=== PATIENT | female | born 1950 | race American Indian/Alaskan Native ===

== ENCOUNTER 2020-12-30 11:40 | Emergency (ER) | payer MEDICAID, MEDICARE ==
[2020-12-30] MEDS ORDERED: ONDANSETRON 4 MG ODT TAB PO ONE (12:03)
[2020-12-30] MEDS ORDERED: oxyCODONE /ACETAMINOPHEN 5-325MG TAB PO ONE (12:03)
--- NOTE | 2020-12-30 12:25 | Emergency Department Report ---
ED Back Pain/Injury HPI - General Chief Complaint: Back Pain/Injury Stated Complaint: Low back pain Time Seen by Provider: 12/30/20 11:53 Source: patient Limitations: No Limitations - History of Present Illness Initial Comments: Patient is a 70-year-old female presents emergency room complaints of right lower back pain that radiates to her right buttock down her right leg that began a week ago. She states that she is also noticed that her urine has been red in coloration. She states that it is also been causing her to have nausea and vomiting secondary to the pain. She denies any fall or injury. She denies any abdominal pain, diarrhea, numbness, weakness, bowel or bladder incontinence, fever. Past medical history of hypertension, arthritis, asthma, bulging disc. She states that she had an MRI 3 years ago which she reports showed that she had 3 bulging disc. - Related Data Home Medications Medication Instructions Recorded Confirmed Last Taken Telmisartan 12/30/20 Unknown cloNIDine [Catapres] 0.2 mg PO QAM 12/30/20 12/30/20 12/30/20 0.2 mg verapamiL [Calan] 120 mg PO QAM 12/30/20 12/30/20 12/30/20 120 mg Previous Rx's Medication Instructions Recorded Last Taken Type HYDROcodone/APAP 5-325 [Bruno 1 each PO Q6HR PRN #12 tablet 12/30/20 Unknown Rx 5/325] Ondansetron [Zofran Odt] 4 mg PO Q8HR PRN #8 tab.rapdis 12/30/20 Unknown Rx Allergies Allergy/AdvReac Type Severity Reaction Status Date / Time metronidazole [From Flagyl] AdvReac Intermediate Vomiting Verified 12/30/20 11:52 tramadol AdvReac Intermediate Vomiting Verified 12/30/20 11:52 ED Review of Systems ROS: Stated complaint: Low back pain Other details as noted in HPI Comment: All other systems reviewed and negative ED Past Medical Hx - Medications Home Medications: Home Medications Medication Instructions Recorded Confirmed Last Taken Type HYDROcodone/APAP 5-325 [Bruno 1 each PO Q6HR PRN #12 tablet 12/30/20 Unknown Rx 5/325] Ondansetron [Zofran Odt] 4 mg PO Q8HR PRN #8 tab.rapdis 12/30/20 Unknown Rx Telmisartan 12/30/20 Unknown History cloNIDine [Catapres] 0.2 mg PO QAM 12/30/20 12/30/20 12/30/20 History 0.2 mg verapamiL [Calan] 120 mg PO QAM 12/30/20 12/30/20 12/30/20 History 120 mg ED Physical Exam - General Limitations: No Limitations General appearance: alert, in no apparent distress - Head Head exam: Present: atraumatic, normocephalic - Eye Eye exam: Present: normal appearance - ENT ENT exam: Present: mucous membranes moist - Neck Neck exam: Present: normal inspection, full ROM. Absent: tenderness, meningismus - Respiratory Respiratory exam: Present: normal lung sounds bilaterally. Absent: respiratory distress, wheezes, rales, rhonchi, stridor, chest wall tenderness, accessory muscle use, decreased breath sounds, prolonged expiratory - Cardiovascular Cardiovascular Exam: Present: regular rate, normal rhythm, normal heart sounds. Absent: systolic murmur, diastolic murmur, rubs, gallop - GI/Abdominal GI/Abdominal exam: Present: soft, normal bowel sounds. Absent: distended, tenderness, guarding, rebound, rigid - Back Exam Back exam: Present: normal inspection, full ROM, paraspinal tenderness (ttp to the right paraspinal lumbar region, no midline l-spine ttp, no step offs, no deformities). Absent: vertebral tenderness - Neurological Exam Neurological exam: Present: alert, oriented X3, CN II-XII intact. Absent: motor sensory deficit - Psychiatric Psychiatric exam: Present: normal affect, normal mood - Skin Skin exam: Present: warm, dry, intact ED Course Vital Signs 12/30/20 12/30/20 12/30/20 11:52 12:11 12:47 Temperature 97.7 F 98.0 F Pulse Rate 78 70 Respiratory 18 16 16 Rate Blood Pressure 211/67 182/74 [Right] O2 Sat by Pulse 98 96 Oximetry 12/30/20 13:22 Temperature 97.7 F Pulse Rate 71 Respiratory 13 Rate Blood Pressure 162/72 [Right] O2 Sat by Pulse 95 Oximetry ED Medical Decision Making - Lab Data Result diagrams: 12/30/20 12:11 12/30/20 12:11 Lab Results 12/30/20 12/30/20 12/30/20 Range/Units 12:11 12:11 Unknown WBC 4.2 L (4.5-11.0) K/mm3 RBC 4.81 (3.65-5.03) M/mm3 Hgb 12.3 (10.1-14.3) gm/dl Hct 38.6 (30.3-42.9) % MCV 80 (79-97) fl MCH 26 L (28-32) pg MCHC 32 (30-34) % RDW 15.0 (13.2-15.2) % Plt Count 277 (140-440) K/mm3 [place] % (Auto) Debate Director Add Manual Diff Complete Total Counted 100 Seg Neuts % (Manual) 63.0 (40.0-70.0) % Band Neutrophils % 1.0 % Lymphocytes % (Manual) 17.0 (13.4-35.0) % Monocytes % (Manual) 18.0 H (0.0-7.3) % Myelocytes % 1.0 % Nucleated RBC % Not Reportable Seg Neutrophils # Man 2.6 (1.8-7.7) K/mm3 Band Neutrophils # 0.0 K/mm3 Lymphocytes # (Manual) 0.7 L (1.2-5.4) K/mm3 Abs React Lymphs (Man) 0.0 K/mm3 Monocytes # (Manual) 0.8 (0.0-0.8) K/mm3 Eosinophils # (Manual) 0.0 (0.0-0.4) K/mm3 Basophils # (Manual) 0.0 (0.0-0.1) K/mm3 Metamyelocytes # 0.0 K/mm3 Myelocytes # 0.0 K/mm3 Promyelocytes # 0.0 K/mm3 Blast Cells # 0.0 K/mm3 WBC Morphology Not Reportable Hypersegmented Neuts Not Reportable Hyposegmented Neuts Not Reportable Hypogranular Neuts Not Reportable Smudge Cells Not Reportable Toxic Granulation Not Reportable Toxic Vacuolation Not Reportable Dohle Bodies Not Reportable Pelger-Huet Anomaly Not Reportable Angie Rods Not Reportable Platelet Estimate Consistent w auto Clumped Platelets Not Reportable Plt Clumps, EDTA Not Reportable Large Platelets Not Reportable Giant Platelets Not Reportable Platelet Satelliting Not Reportable Plt Morphology Comment Not Reportable RBC Morphology Not Reportable Dimorphic RBCs Not Reportable Polychromasia Not Reportable Hypochromasia 1+ Poikilocytosis Not Reportable Anisocytosis Not Reportable Microcytosis Not Reportable Macrocytosis Not Reportable Spherocytes Not Reportable Pappenheimer Bodies Not Reportable Sickle Cells Not Reportable Target Cells Not Reportable Tear Drop Cells Not Reportable Ovalocytes Not Reportable Helmet Cells Not Reportable Jones-Millard Bodies Not Reportable [place] Rings Not Reportable [place] Cells Not Reportable Bite Cells Not Reportable Crenated Cell Not Reportable Elliptocytes Not Reportable Acanthocytes (Spur) Not Reportable Rouleaux Not Reportable Hemoglobin C Crystals Not Reportable Schistocytes Not Reportable Malaria parasites Not Reportable Moe Bodies Not Reportable Hem Pathologist Commnt No Sodium 130 L (137-145) mmol/L Potassium 3.7 (3.6-5.0) mmol/L Chloride 92.5 L (98-107) mmol/L Carbon Dioxide 23 (22-30) mmol/L Anion Gap 18 mmol/L BUN 25 H (7-17) mg/dL Creatinine 0.9 (0.6-1.2) mg/dL Estimated GFR > 60 ml/min BUN/Creatinine Ratio 28 % Glucose 154 H (65-100) mg/dL Calcium 8.7 (8.4-10.2) mg/dL Total Bilirubin 0.30 (0.1-1.2) mg/dL AST 10 (5-40) units/L ALT < 5 L (7-56) units/L Alkaline Phosphatase 92 (35-129) units/L Total Protein 8.4 H (6.3-8.2) g/dL Albumin 4.0 (3.9-5) g/dL Albumin/Globulin Ratio 0.9 % Lipase 8 L (13-60) units/L Urine Color Yellow (Yellow) Urine Turbidity Clear (Clear) Urine pH 5.0 (5.0-7.0) Ur Specific [place]ater 1.020 (1.003-1.030) Urine Protein 100 mg/dl (Negative) mg/dL Urine Glucose (UA) Neg (Negative) mg/dL Urine Ketones Neg (Negative) mg/dL Urine Blood Neg (Negative) Urine Nitrite Neg (Negative) Urine Bilirubin Neg (Negative) Urine Urobilinogen 4.0 (<2.0) mg/dL Ur Leukocyte Esterase Neg (Negative) Urine WBC (Auto) 1.0 (0.0-6.0) /HPF Urine RBC (Auto) 3.0 (0.0-6.0) /HPF U Epithel Cells (Auto) 2.0 (0-13.0) /HPF Urine Mucus Few /HPF Vital Signs 12/30/20 12/30/20 12/30/20 11:52 12:11 12:47 Temperature 97.7 F 98.0 F Pulse Rate 78 70 Respiratory 18 16 16 Rate Blood Pressure 211/67 182/74 [Right] O2 Sat by Pulse 98 96 Oximetry 12/30/20 13:22 Temperature 97.7 F Pulse Rate 71 Respiratory 13 Rate Blood Pressure 162/72 [Right] O2 Sat by Pulse 95 Oximetry - Radiology Data Radiology results: report reviewed Ordering Physician: LUDIVINA MORROW Date of Service: 12/30/20 Procedure(s): CT abdomen pelvis wo con Accession Number(s): [id number] cc: LUDIVINA MORROW CT abdomen pelvis wo con INDICATION: right lower back, hematuria, hx of bulging disc. TECHNIQUE: All CT scans at this location are performed using CT dose reduction for ALARA by means of automated exposure control. COMPARISON: None available. FINDINGS: There is mild interstitial scarring in both lung bases without acute abnorm ality. There are multiple stones in the gallbladder without evidence of acute cholecystitis. There is a cyst in the anterior left hepatic lobe without acute lobar abnormality. The pancreas, adrenal glands, spleen, and kidneys demonstrate no acute findings. No urinary stones are seen. There are no acute bowel abnormalities. The appendix is normal. Small hiatal hernia is seen. Visualized osseous structures demonstrate no aggressive appearing bone lesions or acute findings. IMPRESSION: 1. No acute findings. 2. Cholelithiasis without evidence of acute cholecystitis. 3. No urinary stones identified. Signer Name: Mohinder Dale MD Signed: 12/30/2020 1:20 PM Workstation Name: [id number] Transcribed By: CHRISTAL Dictated By: Mohinder Dale MD Electronically Authenticated By: Mohinder Dale MD Signed Date/Time: 12/30/20 1320 DD/ 1318 TD/TT: - Medical Decision Making Patient is a 70-year-old female presents emergency room complaints of right lower back pain that radiates to her right buttock down her right leg that began a week ago. She states that she is also noticed that her urine has been red in coloration. She states that it is also been causing her to have nausea and vomiting secondary to the pain. She denies any fall or injury. She denies any abdominal pain, diarrhea, numbness, weakness, bowel or bladder incontinence, fever. Past medical history of hypertension, arthritis, asthma, bulging disc. She states that she had an MRI 3 years ago which she reports showed that she had 3 bulging disc. Initial vitals with elevated blood pressure which improved upon repeat without intervention, patient has chronic hypertension. On exam:ttp to the right paraspinal lumbar region, no midline l-spine ttp, no step offs, no deformities, no focal neuro deficits, patient is able to ambulate. ct abd pelvis without contrast: 1. No acute findings. 2. Cholelithiasis without evidence of acute cholecystitis. 3. No urinary stones identified. Patient given medications while in the emergency department with improvement of symptoms. Discussed the importance of primary care and neurosurgery follow-up. Symptoms likely related to lumbar radiculopathy due to her bulging disc/arthr itis versus sciatica. Discussed return precautions. Advised patient Please take medication as prescribed. Follow-up with your primary care doctor. Follow-up with a instructional systems specialist. Return to emergency room for any new or worsening symptoms. Critical care attestation.: If time is entered above; I have spent that time in minutes in the direct care of this critically ill patient, excluding procedure time. ED Disposition Clinical Impression: Back pain Qualifiers: Back pain location: low back pain Chronicity: acute Back pain laterality: right Sciatica presence: with sciatica Sciatica laterality: sciatica of right side Qualified Code(s): M54.41 - Lumbago with sciatica, right side Nausea & vomiting Qualifiers: Vomiting type: unspecified Vomiting Intractability: non-intractable Qualified Code(s): R11.2 - Nausea with vomiting, unspecified Disposition: 01 HOME / SELF CARE / HOMELESS Is pt being admited?: No Does the pt Need Aspirin: No Condition: Stable Instructions: Radicular Pain, Sciatica Additional Instructions: Please take medication as prescribed. Follow-up with your primary care doctor. Follow-up with a instructional systems specialist. Return to emergency room for any new or worsening symptoms. Prescriptions: HYDROcodone/APAP 5-325 [Bruno 5/325] 1 each PO Q6HR PRN #12 tablet PRN Reason: Pain , Severe (7-10) Ondansetron [Zofran Odt] 4 mg PO Q8HR PRN #8 tab.rapdis PRN Reason: nausea/vomiting Referrals: MAURICIO VELAZQUEZ MD [Primary Care Provider] - 3-5 Days SHARON BARNEY II, MD [Staff Physician] - 3-5 Days (instructional systems specialist) Time of Disposition: 15:34 Print Language: MALAY
--- NOTE | 2020-12-30 13:24 | Cat Scan Report ---
CT abdomen pelvis wo con INDICATION: right lower back, hematuria, hx of bulging disc. TECHNIQUE: All CT scans at this location are performed using CT dose reduction for ALARA by means of automated e xposure control. COMPARISON: None available. FINDINGS: There is mild interstitial scarring in both lung bases without acute abnormality. There are multiple stones in the gallbladder without evidence of acute cholecystitis. There is a cyst in the anterior left hepatic lobe without acute lobar abnormality. The pancreas, adrenal glands, spl een, and kidneys demonstrate no acute findings. No urinary stones are seen. There are no acute bowel abnormalities. The appendix is normal. Small hiatal hernia is seen. Visualized osseous structures demonstrate no aggressive appearing bone lesions or acute findings. IMPRESSION: 1. No acute findings. 2. Cholelithiasis without evidence of acute cholecystitis. 3. No urinary stones identified. Signer Name: Mohinder Dale MD Signed: 12/30/2020 1:20 PM Workstation Name: [id number]
[2020-12-30 13:25] VITALS: BP 162/72
[2020-12-30 13:33] LABS: BUN/Creatinine Ratio 28; Blood Urea Nitrogen 25 mg/dL (7-17); Calcium 8.7 mg/dL (8.4-10.2); Hemolysis Index 0
[2020-12-30 13:39] LABS: Alanine Aminotransferase < 5 units/L (7-56); Hematocrit 38.6 % (30.3-42.9); Hemoglobin 12.3 gm/dl (10.1-14.3); Mean Corpuscular HGB Conc 32 % (30-34); Mean Corpuscular Volume 80 fl (79-97); Platelet Count 277 K/mm3 (140-440); Red Blood Count 4.81 M/mm3 (3.65-5.03)
[2020-12-30] MEDS ORDERED: MORPHINE 4 MG/1 ML INJ IM ONE (15:22)
[2020-12-30 15:29] LABS: Bilirubin,Urine NEG (Negative); Blood,Urine NEG (Negative); Color,Urine Yellow (Yellow); Mucus,Urine FEW /HPF
[2020-12-30 16:57] LABS: Hypochromasia 1+; Platelet Estimate Consistent w Auto; Total Cells Counted 100
== END 2020-12-30 16:32 | disposition home or self-care (01) ==
LOC: ED 11:40
DX: M54.50 Low back pain, unspecified (principal); R11.2 Nausea with vomiting, unspecified; Z88.8 Allergy status to other drugs, medicaments and biological substances; Z79.899 Other long term (current) drug therapy
CPT/HCPCS: 36415; 74176; 80053; 81001; 83690; 85007; 85025; 99284; J3490; Q0162